=== PATIENT | male | born 1995 | race Two or more races ===

== ENCOUNTER 2020-10-28 19:25 | Emergency (ER) | payer OTHER ==
[~2020-10-28] VITALS: Ht 170.2 cm; Wt 80.7 kg
[2020-10-28] MEDS ORDERED: Pantoprazole Inj IV ONE (20:00)
[2020-10-28] MEDS ORDERED: Lidocaine 2% Visc 15ml soln ORAL ONE (20:00)
[2020-10-28] MEDS ORDERED: Dicyclomine HCl 10mg/5ml oral soln ORAL ONE (20:00)
[2020-10-28] MEDS ORDERED: Mylanta II UD 30ml ORAL ONE (20:00)
--- NOTE | 2020-10-28 20:23 | Diagnostic Imaging Report ---
EXAM: XR Abdomen, 2 Views CLINICAL HISTORY: PAIN TECHNIQUE: Frontal view of the abdomen/pelvis with upright view of the abdomen. COMPARISON: No relevant prior studies available. FINDINGS: Intraperitoneal space: No free air. Gastrointestinal tract: Unremarkable. No dilation. Bones/joints: Unremarkable. IMPRESSION: Unremarkable study.
[2020-10-28 20:37] LABS: BASOPHILS % (AUTO) 1.9 % (0.0-2.0); EOSINOPHILS % (AUTO) 1.7 % (0.0-3.0); HEMATOCRIT 43.5 % (42.0-52.0); HEMOGLOBIN 14.7 G/DL (14.2-18.0); LYMPHOCYTES % (AUTO) 14.8 % (20.0-45.0); MEAN CORPUSCULAR VOLUME 87 FL (80-99); NEUTROPHILS % (AUTO) 72.6 % (45.0-75.0); PLATELET COUNT 291 K/UL (150-450); RED BLOOD COUNT 5.03 M/UL (4.70-6.10); WHITE BLOOD COUNT 13.3 K/UL (4.8-10.8)
[2020-10-28 20:42] LABS: ANION GAP 8 mmol/L (5-15); BLOOD UREA NITROGEN 18 mg/dL (7-18); CARBON DIOXIDE 29 MMOL/L (21-32); CHLORIDE 105 MMOL/L (98-107); POTASSIUM 4.1 MMOL/L (3.5-5.1); SODIUM 142 MMOL/L (136-145)
--- NOTE | 2020-10-28 20:44 | NUR ---
Pt assessed at 1999 for report of nausea and diarrhea. Pt last BM was upon arrival to this ED. Currently pt reports no pain and no nausea. Pt at 2004 refused all medications and stated he just wants his lab drawn and Xrays taken. ED MD, Nima dodd.
[2020-10-28 20:48] LABS: APPEARANCE,URINE CLEAR; BILIRUBIN, URINE NEGATIVE (NEGATIVE); GLUCOSE, URINE (UA) NEGATIVE (NEGATIVE); KETONES,URINE NEGATIVE (NEGATIVE); LEUKOCYTE ESTERASE ,URINE NEGATIVE (NEGATIVE); NITRITE,URINE NEGATIVE (NEGATIVE); PH,URINE 6.5 (4.5-8.0); PROTEIN,URINE 1+ (NEGATIVE); UROBILINOGEN,URINE 8 MG/DL (0.0-1.0)
--- NOTE | 2020-10-28 20:49 | Emergency Room Report ---
History of Present Illness General Chief Complaint: Abdominal Pain Source: Patient Present Illness HPI Patient is a 25-year-old male presents for increased abdominal pain. Reports having recent heavy alcohol intake. States he has lower abdominal pain associated with some discomfort. Denies any fever. Reports having some diarrhea. Denies any recent trauma. Patient states he did have some alcohol yesterday. He had reportedly just left rehab. About 2 weeks ago Allergies: Coded Allergies: No Known Allergies (Unverified , 10/28/20) COVID-19 Screening Contact w/high risk pt: No Experienced COVID-19 symptoms?: No COVID-19 Testing performed PATIENT ACCESS DIRECTOR: Yes COVID-19 Screening: Negative COVID-19 COVID-19 Testing Source: oral swab Patient History Past Medical History: see triage record Reviewed Nursing Documentation: PMH: Agreed; PSxH: Agreed Nursing Documentation-PMH Past Medical History: No Stated History Review of Systems All Other Systems: negative except mentioned in HPI Physical Exam Vital Signs Date Time Temp Pulse Resp B/P (MAP) Pulse Ox O2 Delivery O2 Flow Rate FiO2 10/28/20 19:28 98.6 90 14 147/90 (109) 98 Room Air Sp02 EP Interpretation: reviewed, normal General Appearance: normal inspection, well appearing, no apparent distress, alert, GCS 15, non-toxic Head: normocephalic, atraumatic ENT: normal ENT inspection, hearing grossly normal, normal voice Neck: normal inspection, full range of motion, supple, no bony tend Respiratory: normal inspection, lungs clear, normal breath sounds, no respiratory distress, no retraction, no wheezing Cardiovascular #1: regular rate, rhythm, no edema Gastrointestinal: normal inspection, normal bowel sounds, non tender, soft, no guarding, no hernia Genitourinary: no CVA tenderness Musculoskeletal: normal inspection, back normal, normal range of motion Neurologic: alert, motor strength/tone normal, operator helper III-XII nml as tested, oriented x3, responsive, speech normal, normal inspection Psychiatric: normal inspection, judgement/insight normal, mood/affect normal Skin: no rash Medical Decision Making Diagnostic Impression: Primary Impression: Gastritis ER Course Patient presents for abdominal pain. Differential diagnosis include was not limited to anemia, gastroenteritis, gastritis, pancreatitis among others. Because of complexity of patient's case laboratory tests and imaging studies were ordered. KUB showed no acute pathology per radiology reading. Patient's laboratory testing showed unremarkable electrolyte panel.Reexamination showed no evidence of peritonitis. Patient declined medications and IV fluids.Patient's laboratory testing showed a minimally elevated white blood count. Patient refused any medications and declined hospitalization. He stated his main concern was with regard to imaging of his abdomen for possible foreign body. The patient is advised to follow up with primary care doctor in 1-2 days. Patient is advised to return if any worsening condition or if any changes in status that are concerning. This report is dictated with [email or web address] reporting lead software which may occasionally lead to discrepancies related to use of this software. Labs Test 10/28/20 20:08 Sodium Level 142 MMOL/L (136-145) Potassium Level 4.1 MMOL/L (3.5-5.1) Chloride Level 105 MMOL/L (98-107) Carbon Dioxide Level 29 MMOL/L (21-32) Anion Gap 8 mmol/L (5-15) Blood Urea Nitrogen 18 mg/dL (7-18) Creatinine 1.0 MG/DL (0.55-1.30) Estimat Glomerular Filtration Rate > 60 mL/min (>60) Glucose Level 103 MG/DL (74-106) Calcium Level 9.0 MG/DL (8.5-10.1) Last Vital Signs Date Time Temp Pulse Resp B/P (MAP) Pulse Ox O2 Delivery O2 Flow Rate FiO2 10/28/20 19:28 98.6 90 14 147/90 (109) 98 Room Air Status: improved Disposition: HOME, SELF-CARE Condition: Stable Scripts Omeprazole (OMEPRAZOLE) 20 Mg Capsule. 20 MG ORAL DAILY for Gerd, #30 CAP Prov: Marcus Herring MD 10/28/20 Referrals: NOT CHOSEN IPA/,REFERRING (PCP) Marcus Herring MD Oct 28, 2020 20:49
[2020-10-28 20:53] LABS: ALANINE AMINOTRANSFERASE 59 U/L (12-78); ALBUMIN 4.1 G/DL (3.4-5.0); ALBUMIN/GLOBULIN RATIO 1.3 (1.0-2.7); ALKALINE PHOSPHATASE 112 U/L (46-116); ASPARTATE AMINO TRANSFERASE 57 U/L (15-37); BILIRUBIN,TOTAL 1.1 MG/DL (0.2-1.0)
[2020-10-28 20:55] LABS: BILIRUBIN,DIRECT 0.2 MG/DL (0.0-0.3)
[2020-10-28 20:59] LABS: COLOR,URINE YELLOW
[2020-10-28] MEDS ORDERED: OMEPRAZOLE20 M2 ORAL (21:07)
[2020-10-28 21:14] VITALS: BP 138/86
--- NOTE | 2020-10-28 21:14 | NUR ---
ER DISCHARGE NOTE: Patient is cleared to be discharged per ERMD, pt is aox4, on room air, with stable vital signs. pt was given dc and prescription instructions, pt was able to verbalize understanding, pt id band and iv site removed without complications. pt is able to ambulate with steady gait. pt took all belongings.
== END 2020-10-28 21:14 | disposition home or self-care (01) ==
LOC: EMR 19:41
DX: K29.70 Gastritis, unspecified, without bleeding (principal)
CPT/HCPCS: 36415; 74018; 80053; 81003; 82248; 83690; 85025; 96361; 96374; 96375; 99284